=== PATIENT | female | born 1940 | race Caucasian/White ===

== ENCOUNTER 2017-03-04 16:20 | Inpatient (IN) ==
[2017-03-04] MEDS ORDERED: Dextrose Gel 15 GM PO PRN ×2 (18:32)
[2017-03-04] MEDS ORDERED: *HR* Dextrose 50 % in Water (Syg) 50 ML SYRINGE IVP PRN (18:32)
[2017-03-04] MEDS ORDERED: D5% in Water 1,000 ML IVC PRN (18:32)
[2017-03-04] MEDS: Albuterol 2.5 MG/3 ML NEBULIZER IH SCH (20:10)
[2017-03-04] MEDS: *HR* HYDROcodone/Acet 5/325 mg TABLET PO PRN (20:11)
[2017-03-04] MEDS: Insulin LISPRO 300 UNITS/3 ML VIAL SQ SCH (20:53)
[2017-03-04] MEDS: Gabapentin 300 MG CAPSULE PO SCH (20:57)
[2017-03-04] MEDS: *HR* Metformin 500 MG TABLET PO SCH (20:57)
[2017-03-05] MEDS: Albuterol 2.5 MG/3 ML NEBULIZER IH SCH ×7 (01:07→23:52)
[2017-03-05] MEDS: ALPRAZolam 0.5 MG TABLET PO PRN ×2 (02:01→17:31)
[2017-03-05] MEDS: *HR* HYDROcodone/Acet 5/325 mg TABLET PO PRN ×4 (05:19→21:43)
[2017-03-05 05:43] LABS: Basophils # 0.1 K/mcL (0.0-0.2); Basophils % 0.6 %; Eosinophils # 0.5 K/mcL (0.0-0.6); Eosinophils % 5.4 %; Hematocrit 32.7 % (35.3-44.9); Hemoglobin 10.9 g/dL (11.5-15.4); Immature Granulocytes % 0.8 % (0-4); Lymphocytes # 1.4 K/mcL (0.6-4.6); Lymphocytes % 15.2 %; Mean Corpuscular HGB Conc 33.3 g/dL (31.6-35.5); Mean Corpuscular Hemoglobin 32.2 pg (28.0-33.3); Mean Corpuscular Volume 96.5 fL (83.0-100.0); Mean Platelet Volume 10.1 fL (9.4-12.4); Platelet Count 256 K/mcL (140-400); Red Blood Count 3.39 M/mcL (3.82-4.97); Red Cell Distribution Width 14.6 % (11.5-14.5)
[2017-03-05 05:47] LABS: Prothrombin Time 10.6 Seconds (9.4-12.1)
[2017-03-05 05:54] LABS: BUN/Creatinine Ratio 18 (6-26); Blood Urea Nitrogen 12 mg/dL (7-20); Calcium 9.3 mg/dL (8.6-10.8); Carbon Dioxide 25 mEq/L (19-29); Chloride 102 mEq/L (98-109); Glucose 115 mg/dL (70-99); Osmolality,Calculated 281 (280-300); Potassium 5.1 mEq/L (3.5-4.5); Sodium 135 mEq/L (136-145); eGFR For African Americans > 60 (> 60); eGFR For Non-African Americans > 60 (> 60)
[2017-03-05] MEDS: Insulin LISPRO 300 UNITS/3 ML VIAL SQ SCH ×4 (08:53→21:41)
[2017-03-05] MEDS: *HR* Metformin 500 MG TABLET PO SCH ×3 (09:08→21:40)
[2017-03-05] MEDS: Lisinopril 20 MG TABLET PO SCH (09:08)
[2017-03-05] MEDS: Aspirin 81 MG TAB.CHEW PO SCH (09:09)
[2017-03-05] MEDS: Furosemide 20 MG TABLET PO SCH (09:10)
[2017-03-05] MEDS: Gabapentin 300 MG CAPSULE PO SCH ×2 (09:10→21:41)
[2017-03-05] MEDS: Isosorbide MONOnitrate (24 HR) 60 MG TAB.ER.24H PO SCH (09:10)
[2017-03-05] MEDS: Nicotine 21 MG PATCH.TD24 TD SCH (09:15)
--- NOTE | 2017-03-05 11:13 | Internal Med History&Physical ---
Date of Encounter: 03/05/17 Time of Encounter: 11:11 Assessment and Plan (1) Diabetes Current visit: Yes Status: Acute Qualifiers: Diabetes mellitus type: type 2 Diabetes mellitus complication status: with circulatory complication Qualified Code(s): E11.59 - Type 2 diabetes mellitus with other circulatory complications; Z79.4 - middle or intermediate school principal (current) use of insulin ; Z79.4 - middle or intermediate school principal (current) use of insulin; Z79.4 - middle or intermediate school principal (current) use of insulin; Z79.4 - assisted (current) use of insulin (2) HTN (hypertension) Current visit: Yes Status: Acute Following blood pressure Qualifiers: Hypertension type: essential hypertension Qualified Code(s): I10 - Essential (primary) hypertension (3) Pericardial effusion Current visit: No Status: Acute Patient had a median sternotomy. She has precautions and this is been emphasized by everyone. The biopsy and cytology were negative for malignancy Internal Medicine - H&P: HPI Chief complaint: Patient is deconditioned after having a cardiothoracic procedure to relieve Admitted From: Hospital to Hospital Transfer Plans for Post Hospital Care: Home History of present illness: Ms. Meraz is a 76 year old female Who was diagnosed in the past with lung cancer. She had a partial lobectomy and the echocardiogram showed pericardial fluid collection. There were afraid it was malignant and so therefore she underwent a procedure Past Med Surg Social [facility] HX - Past Medical History Medical history: atrial fibrillation, COPD, coronary artery disease, diabetes, hypertension, malignancy, peripheral artery disease, other Psychiatric history: no psych history - Past Surgical History Surgical History: angioplasty/stent, appendectomy, cholecystectomy, hip replacement, other - Social History Smoking Status: Current every day smoker Packs per day: 1 Smokeless Tobacco Status: No Alcohol use: none Drug use: none Internal Medicine - H&P: Meds Albuterol Neb [Proventil Neb] 2.5 mg IH TID PRN 02/25/17 [History] Aspirin 81 mg PO DAILY 02/25/17 [History] Atorvastatin Calcium [Lipitor] 20 mg PO DAILY 02/25/17 [History] Clopidogrel [Plavix] 75 mg PO DAILY 02/25/17 [History] DULoxetine [Cymbalta] 30 mg PO DAILY 02/25/17 [History] Furosemide [Lasix] 20 mg PO DAILY 02/25/17 [History] Gabapentin [Neurontin] 300 mg PO BID 02/25/17 [History] Isosorbide MONOnitrate (24 HR) [Imdur] 60 mg PO DAILY 02/25/17 [History] Omeprazole [PriLOSEC] 20 mg PO DAILY 02/25/17 [History] metFORMIN [Glucophage] 500 mg PO TID 02/25/17 [History] Acetaminophen w/Cod 300-30 mg [Tylenol w/Codeine #3] 1 each PO QID PRN #42 tablet 03/04/17 [Rx] Metoprolol [Lopressor] 12.5 mg PO BID #60 tablet 03/04/17 [Rx] Nicotine Patch [Nicoderm] 21 mg TD DAILY #30 patch.td24 03/04/17 [Rx] 3 Allergy/AdvReac Type Severity Reaction Status Date / Time No Known Allergies Allergy Unverified 08/27/16 11:25 All Systems PM: A 10-system review of systems was performed and is negative for pertinent findings except as documented above in the HPI. - Constitutional Constitutional: weakness - EENT Eyes: as per HPI Ears: as per HPI Nose, mouth and throat: as per HPI - Cardiovascular Cardiovascular ROS IM: dyspnea on exertion - Respiratory Respiratory: as per HPI - Gastrointestinal Gastrointestinal: as per HPI - Genitourinary Genitourinary: as per HPI Menstruation: as per HPI - Musculoskeletal Musculoskeletal ROS IM: muscle weakness (Patient has very strict chest wall precautions. Because she has had a median sternotomy) - Integumentary Integumentary IM: as per HPI - Neurological Neurological ROS: as per HPI, weakness - Psychiatric Psychiatric: as per HPI - Endocrine Endocrine IM: as per HPI - Hematologic/Lymphatic Hematologic/Lymphatic: as per HPI - Allergic/Immunologic Allergic/Immunologic: as per HPI - Constitutional Vitals: Temp Pulse Resp BP Pulse Ox 97.6 F 87 16 123/75 96 03/05/17 07:00 03/05/17 07:00 03/05/17 07:00 03/05/17 07:00 03/05/17 07:00 - Head Head exam: Present: atraumatic, normal inspection, normocephalic - Neck Neck exam general surgery: Present: supple, trachea midline. Absent: lymphadenopathy - Respiratory Respiratory exam: Present: decreased breath sounds, CTAB, prolonged expiratory phase. Absent: accessory muscle use, rales, rhonchi, wheezes - Cardiovascular Cardiovascular exam: Present: RRR, +S1, +S2. Absent: diastolic murmur, gallop, rubs, systolic murmur - GI/Abdominal GI/Abdominal exam: Present: normal bowel sounds, soft, no peritoneal signs. Absent: distended, tenderness Internal Med - H&P Results - Labs CBC & Chem 7: 03/05/17 05:20 03/05/17 05:20 Labs: Short CBC 03/05/17 Range/Units 05:20 WBC 8.9 (4.3-11.1) K/mcL Hgb 10.9 L (11.5-15.4) g/dL Hct 32.7 L (35.3-44.9) % Plt Count 256 (140-400) K/mcL Neutrophils # 6.0 (1.6-8.9) K/mcL BMP 03/05/17 05:20 Sodium 135 L Potassium 5.1 H Chloride 102 Carbon Dioxide 25 BUN 12 Creatinine 0.65 Glucose 115 H Calcium 9.3 At watch potassium but her labs good - VTE Documentation of Mechanical Device: Graduated compression elastic hosiery
[2017-03-06] MEDS: Albuterol 2.5 MG/3 ML NEBULIZER IH SCH ×6 (05:22→23:33)
[2017-03-06] MEDS: Insulin LISPRO 300 UNITS/3 ML VIAL SQ SCH ×4 (08:10→23:27)
[2017-03-06] MEDS: Nicotine 21 MG PATCH.TD24 TD SCH (08:29)
[2017-03-06] MEDS: Gabapentin 300 MG CAPSULE PO SCH ×2 (08:29→20:45)
[2017-03-06] MEDS: Isosorbide MONOnitrate (24 HR) 60 MG TAB.ER.24H PO SCH (08:29)
[2017-03-06] MEDS: Aspirin 81 MG TAB.CHEW PO SCH (08:30)
[2017-03-06] MEDS: *HR* Metformin 500 MG TABLET PO SCH ×3 (08:30→20:45)
[2017-03-06] MEDS: Furosemide 20 MG TABLET PO SCH (08:30)
[2017-03-06] MEDS: Lisinopril 20 MG TABLET PO SCH (08:30)
[2017-03-06] MEDS: *HR* HYDROcodone/Acet 5/325 mg TABLET PO PRN ×2 (11:21→20:45)
--- NOTE | 2017-03-06 12:18 | Physical Med Progress Note ---
Date of Encounter: 03/06/17 Time of Encounter: 12:13 Physical Medicine-PN: Subj Interval history: PMR PCC Note Patient doing well. She has some issues remembering sternal precautions. She is min A for transfers. Min A for upper and lower body dressing. Patient is working on breathing techniques. Patient requires frequent rest breaks. Min to mod A for ambulation. Cues for reminders not to reach back with sit to stand transfers. Ambulates 10 feet times 2 with wheeled walker with step to gait pattern. Plan for discharge to home on 03/15/17. Patient will continue with PT/OT/TR to work on improving endurance and self care. - Constitutional Vitals: Vital Signs Temp Pulse Resp BP Pulse Ox 03/06/17 07:00 97.4 F L 71 15 122/54 92 03/05/17 19:02 97.4 F L 96 20 113/55 98 03/05/17 16:00 97.4 F L 86 16 98/50 99 03/05/17 13:42 98.0 F 77 16 95/55 96 Intake and Output 03/05/17 03/06/17 03/06/17 23:59 07:59 15:59 Intake Total 240 / 240 200 / 200 120 / 120 Balance 240 / 240 200 / 200 120 / 120 Intake: Oral 240 / 240 200 / 200 120 / 120 Other: Meal Dinner Breakfast Percent of Meal Consumed 100% 80% Stool Size Smear # Voids 1 1 Blood Glucose* 162 111 Physical Medicine-PN: Obj Data - Labs CBC & Chem 7: 03/05/17 05:20 03/05/17 05:20 Labs: Laboratory Results - last 24 hr 03/05/17 03/05/17 03/05/17 08:07 12:10 16:47 POC Glucose 116 H 88 114 H 03/05/17 03/06/17 20:16 07:34 POC Glucose 162 H 111 H - ABG Interpretation ABG results: PT/INR, D-dimer PT 10.6 Seconds (9.4-12.1) 03/05/17 05:20 - VTE Documentation of Mechanical Device: Graduated compression elastic hosiery Consult Discharge Plan - Plan Referrals: Rogelio Nevarez CNP [Primary Care Provider] -
[2017-03-06] MEDS: ALPRAZolam 0.5 MG TABLET PO PRN ×2 (15:21→23:33)
[2017-03-07] MEDS: Albuterol 2.5 MG/3 ML NEBULIZER IH SCH ×5 (05:30→19:32)
[2017-03-07] MEDS: *HR* HYDROcodone/Acet 5/325 mg TABLET PO PRN ×3 (05:31→19:31)
[2017-03-07] MEDS: Insulin LISPRO 300 UNITS/3 ML VIAL SQ SCH ×4 (07:56→21:02)
[2017-03-07] MEDS: Gabapentin 300 MG CAPSULE PO SCH ×2 (08:31→21:17)
[2017-03-07] MEDS: Nicotine 21 MG PATCH.TD24 TD SCH (08:31)
[2017-03-07] MEDS: Aspirin 81 MG TAB.CHEW PO SCH (08:31)
[2017-03-07] MEDS: Lisinopril 20 MG TABLET PO SCH (08:31)
[2017-03-07] MEDS: *HR* Metformin 500 MG TABLET PO SCH ×3 (08:31→21:18)
[2017-03-07] MEDS: Furosemide 20 MG TABLET PO SCH (08:31)
[2017-03-07] MEDS: Isosorbide MONOnitrate (24 HR) 60 MG TAB.ER.24H PO SCH (08:31)
[2017-03-07] MEDS: ALPRAZolam 0.5 MG TABLET PO PRN ×2 (11:34→21:18)
--- NOTE | 2017-03-07 13:36 | Internal Med Progress Note ---
Date of Encounter: 03/07/17 Time of Encounter: 13:34 - Assessment and plan (1) Diabetes Current Visit: Yes Status: Acute Assessment and plan: Follow blood sugar. Blood sugars really are. Qualifiers: Diabetes mellitus type: type 2 Diabetes mellitus complication status: with circulatory complication Qualified Code(s): E11.59 - Type 2 diabetes mellitus with other circulatory complications; Z79.4 - local intermodal truck driver (current) use of insulin ; Z79.4 - local intermodal truck driver (current) use of insulin; Z79.4 - local intermodal truck driver (current) use of insulin; Z79.4 - local intermodal truck driver (current) use of insulin (2) HTN (hypertension) Current Visit: Yes Status: Acute Assessment and plan: Blood pressures controlled Qualifiers: Hypertension type: essential hypertension Qualified Code(s): I10 - Essential (primary) hypertension (3) Pericardial effusion Current Visit: No Status: Acute Assessment and plan: This is been resolved for surgery - Time Spent With Patient less than 15 minutes - Subjective Interval history: Patient is aggressive about during her therapy. She is eating well and has no complaints. - Constitutional Vitals: Temp Pulse Resp BP Pulse Ox 98.0 F 99 20 111/50 96 03/06/17 19:09 03/06/17 19:09 03/06/17 19:09 03/06/17 19:09 03/06/17 20:54 - Head Head exam: Present: atraumatic, normal inspection, normocephalic - Neck Neck exam general surgery: Present: supple, trachea midline. Absent: lymphadenopathy - Respiratory Respiratory exam: Present: CTAB. Absent: accessory muscle use, rales, rhonchi, wheezes - Cardiovascular Cardiovascular exam: Present: RRR, +S1, +S2. Absent: diastolic murmur, gallop, rubs, systolic murmur - GI/Abdominal GI/Abdominal exam: Present: normal bowel sounds, soft, no peritoneal signs. Absent: distended, tenderness Internal Medicine: Result - Labs CBC & Chem 7: 03/05/17 05:20 03/05/17 05:20 Labs: Stable - ABG Interpretation ABG results: PT/INR, D-dimer PT 10.6 Seconds (9.4-12.1) 03/05/17 05:20 - VTE Documentation of Mechanical Device: Graduated compression elastic hosiery Consult Discharge Plan - Plan Referrals: Rogelio Nevarez CNP [Primary Care Provider] -
[2017-03-08] MEDS: Albuterol 2.5 MG/3 ML NEBULIZER IH SCH ×6 (00:28→20:30)
[2017-03-08] MEDS: *HR* HYDROcodone/Acet 5/325 mg TABLET PO PRN ×3 (05:27→20:30)
[2017-03-08] MEDS: Insulin LISPRO 300 UNITS/3 ML VIAL SQ SCH ×4 (08:30→20:28)
[2017-03-08] MEDS: *HR* Metformin 500 MG TABLET PO SCH ×3 (09:07→20:28)
[2017-03-08] MEDS: Gabapentin 300 MG CAPSULE PO SCH ×2 (09:07→20:29)
[2017-03-08] MEDS: Isosorbide MONOnitrate (24 HR) 60 MG TAB.ER.24H PO SCH (09:07)
[2017-03-08] MEDS: Aspirin 81 MG TAB.CHEW PO SCH (09:07)
[2017-03-08] MEDS: Furosemide 20 MG TABLET PO SCH (09:07)
[2017-03-08] MEDS: Lisinopril 20 MG TABLET PO SCH (09:07)
[2017-03-08] MEDS: ALPRAZolam 0.5 MG TABLET PO PRN ×2 (09:07→20:29)
[2017-03-08] MEDS: Nicotine 21 MG PATCH.TD24 TD SCH (09:08)
--- NOTE | 2017-03-08 13:37 | Internal Med Progress Note ---
Date of Encounter: 03/08/17 Time of Encounter: 13:35 - Assessment and plan (1) Diabetes Current Visit: Yes Status: Acute Assessment and plan: Patient has had blood sugars followed Qualifiers: Diabetes mellitus type: type 2 Diabetes mellitus complication status: with circulatory complication Qualified Code(s): E11.59 - Type 2 diabetes mellitus with other circulatory complications; Z79.4 - USP (current) use of insulin ; Z79.4 - moth exterminator (current) use of insulin; Z79.4 - moth exterminator (current) use of insulin; Z79.4 - USP (current) use of insulin (2) HTN (hypertension) Current Visit: Yes Status: Acute Assessment and plan: Low pressures well controlled Qualifiers: Hypertension type: essential hypertension Qualified Code(s): I10 - Essential (primary) hypertension (3) Pericardial effusion Current Visit: No Status: Acute Assessment and plan: Reason for surgery was to rule out a malignant effusion. Sedations clean and dry - Time Spent With Patient less than 15 minutes - Subjective Interval history: Patient's doing very well. She is ambulating and cooperating with the therapist and looking good. She does use the walker - Constitutional Vitals: Temp Pulse Resp BP Pulse Ox 97.7 F 87 16 115/56 97 03/08/17 07:46 03/08/17 07:46 03/08/17 08:46 03/08/17 07:46 03/08/17 07:46 - Head Head exam: Present: atraumatic, normal inspection, normocephalic - Neck Neck exam general surgery: Present: supple, trachea midline. Absent: lymphadenopathy - Respiratory Respiratory exam: Present: CTAB. Absent: accessory muscle use, rales, rhonchi, wheezes - Cardiovascular Cardiovascular exam: Present: RRR, +S1, +S2. Absent: diastolic murmur, gallop, rubs, systolic murmur - GI/Abdominal GI/Abdominal exam: Present: normal bowel sounds, soft, no peritoneal signs. Absent: distended, tenderness Internal Medicine: Result - Labs CBC & Chem 7: 03/05/17 05:20 03/05/17 05:20 Labs: Lab looks good - ABG Interpretation ABG results: PT/INR, D-dimer PT 10.6 Seconds (9.4-12.1) 03/05/17 05:20 - VTE Documentation of Mechanical Device: Graduated compression elastic hosiery Consult Discharge Plan - Plan Referrals: Rogelio Nevarez CNP [Primary Care Provider] -
[2017-03-09] MEDS: Albuterol 2.5 MG/3 ML NEBULIZER IH SCH ×6 (01:00→21:30)
[2017-03-09] MEDS: *HR* HYDROcodone/Acet 5/325 mg TABLET PO PRN ×4 (05:33→21:30)
[2017-03-09] MEDS: Insulin LISPRO 300 UNITS/3 ML VIAL SQ SCH ×4 (08:43→21:26)
[2017-03-09] MEDS: Isosorbide MONOnitrate (24 HR) 60 MG TAB.ER.24H PO SCH (08:48)
[2017-03-09] MEDS: ALPRAZolam 0.5 MG TABLET PO PRN ×2 (08:48→19:55)
[2017-03-09] MEDS: Aspirin 81 MG TAB.CHEW PO SCH (08:48)
[2017-03-09] MEDS: Gabapentin 300 MG CAPSULE PO SCH ×2 (08:48→21:31)
[2017-03-09] MEDS: Lisinopril 20 MG TABLET PO SCH (08:50)
[2017-03-09] MEDS: Nicotine 21 MG PATCH.TD24 TD SCH (08:50)
[2017-03-09] MEDS: *HR* Metformin 500 MG TABLET PO SCH ×3 (08:51→21:30)
[2017-03-09] MEDS: Furosemide 20 MG TABLET PO SCH (08:51)
--- NOTE | 2017-03-09 16:46 | Internal Med Progress Note ---
Date of Encounter: 03/09/17 Time of Encounter: 16:40 - Assessment and plan (1) Pericardial effusion Current Visit: Yes Status: Acute Assessment and plan: Stable, currently from a clinical standpoint. (2) Diabetes Current Visit: Yes Status: Acute Assessment and plan: Monitoring Blood sugars. Qualifiers: Diabetes mellitus type: type 2 Diabetes mellitus complication status: with circulatory complication Diabetes mellitus complication detail: with peripheral angiopathy without gangrene Diabetes mellitus care home insulin use : without care home use Qualified Code(s): E11.51 - Type 2 diabetes mellitus with diabetic peripheral angiopathy without gangrene (3) HTN (hypertension) Current Visit: Yes Status: Acute Assessment and plan: Continue current regimen. Qualifiers: Hypertension type: essential hypertension Qualified Code(s): I10 - Essential (primary) hypertension - Subjective Interval history: Doing pretty well and no acue complaints. Breaths well "unitl I need a breathing treatment." Using these every four hours. No other acute issues and ROS is negative but states she's concerned about her swelling in her feet - present since lung surgery (lobectomy) in May. Discussed possible etiology and possible supportive treatments. - Constitutional Vitals: Temp Pulse Resp BP Pulse Ox 97.9 F 55 20 95/47 97 03/09/17 07:00 03/09/17 07:00 03/09/17 07:00 03/09/17 07:00 03/09/17 07:00 - Head Head exam: Present: atraumatic, normocephalic - Eye Eye exam: Present: PERRL, conjuntiva pink, sclera anicteric Pupils: Present: PERRL - Neck Neck exam general surgery: Present: supple, trachea midline. Absent: lymphadenopathy - Respiratory Respiratory exam: Present: CTAB. Absent: accessory muscle use, rales, rhonchi, wheezes Additional comments: Excellent breath sonds, whthout wheeze, even with forced exhalation. - Cardiovascular Cardiovascular exam: Present: RRR. Absent: diastolic murmur, rubs, systolic murmur - GI/Abdominal GI/Abdominal exam: Present: normal bowel sounds, soft, no peritoneal signs. Absent: distended, tenderness Additional comments: Examined upright at bedside. Totally benign but limited exam. - Extremities Exam Extremities exam: Present: warm, radial pulses palpable and symmetrical. Absent : calf tenderness, cyanotic, pedal edema Additional comments: Trace bilateral pedal edema (only). Wearing DAISY hose. - Neurological Exam Neurological exam: Present: CN II-XII intact, oriented X3, no focal deficits. Absent: facial droop, speech deficit Internal Medicine: Result - Labs CBC & Chem 7: 03/05/17 05:20 03/05/17 05:20 - ABG Interpretation ABG results: PT/INR, D-dimer PT 10.6 Seconds (9.4-12.1) 03/05/17 05:20 - VTE Documentation of Mechanical Device: Graduated compression elastic hosiery Consult Discharge Plan - Plan Referrals: Rogelio Nevarez, AIRLINE TICKET AGENT [Primary Care Provider] -
[2017-03-10] MEDS: Albuterol 2.5 MG/3 ML NEBULIZER IH SCH ×6 (00:15→21:04)
[2017-03-10] MEDS: *HR* HYDROcodone/Acet 5/325 mg TABLET PO PRN ×3 (01:51→19:55)
[2017-03-10] MEDS: Insulin LISPRO 300 UNITS/3 ML VIAL SQ SCH ×4 (07:38→20:59)
[2017-03-10] MEDS: Isosorbide MONOnitrate (24 HR) 60 MG TAB.ER.24H PO SCH (07:52)
[2017-03-10] MEDS: Aspirin 81 MG TAB.CHEW PO SCH (07:52)
[2017-03-10] MEDS: Lisinopril 20 MG TABLET PO SCH (07:52)
[2017-03-10] MEDS: Furosemide 20 MG TABLET PO SCH (07:52)
[2017-03-10] MEDS: *HR* Metformin 500 MG TABLET PO SCH ×3 (07:53→20:58)
[2017-03-10] MEDS: ALPRAZolam 0.5 MG TABLET PO PRN ×2 (07:53→21:04)
[2017-03-10] MEDS: Gabapentin 300 MG CAPSULE PO SCH ×2 (07:53→21:04)
[2017-03-10] MEDS: Nicotine 21 MG PATCH.TD24 TD SCH (07:55)
--- NOTE | 2017-03-10 15:01 | Internal Med Progress Note ---
Date of Encounter: 03/10/17 Time of Encounter: 14:10 - Assessment and plan (1) Pericardial effusion Current Visit: Yes Status: Acute Assessment and plan: Stable, currently from a clinical standpoint. (2) Diabetes Current Visit: Yes Status: Acute Assessment and plan: Monitoring Blood sugars. Qualifiers: Diabetes mellitus type: type 2 Diabetes mellitus complication status: with circulatory complication Diabetes mellitus complication detail: with peripheral angiopathy without gangrene Diabetes mellitus fdc insulin use : without intermediate school teacher use Qualified Code(s): E11.51 - Type 2 diabetes mellitus with diabetic peripheral angiopathy without gangrene (3) HTN (hypertension) Current Visit: Yes Status: Acute Assessment and plan: Continue current regimen. Qualifiers: Hypertension type: essential hypertension Qualified Code(s): I10 - Essential (primary) hypertension - Subjective Interval history: No interal hange and denies acute issues per ROS. moving bowels, fine. - Constitutional Vitals: Temp Pulse Resp BP Pulse Ox 98.2 F 72 18 112/60 95 03/10/17 08:00 03/10/17 08:00 03/10/17 08:00 03/10/17 08:00 03/10/17 08:00 - Head Head exam: Present: atraumatic, normocephalic - Eye Eye exam: Present: PERRL, conjuntiva pink, sclera anicteric Pupils: Present: PERRL - Respiratory Respiratory exam: Present: CTAB. Absent: accessory muscle use, rales, rhonchi, wheezes Additional comments: Diffuse sonorous rhonchi, rather pronounced but ggood airflow no rales or wheezes. - Cardiovascular Cardiovascular exam: Present: RRR. Absent: diastolic murmur, systolic murmur - GI/Abdominal GI/Abdominal exam: Present: normal bowel sounds, soft, no peritoneal signs. Absent: distended, tenderness - Extremities Exam Extremities exam: Present: warm, radial pulses palpable and symmetrical. Absent : calf tenderness, cyanotic, pedal edema Internal Medicine: Result - Labs CBC & Chem 7: 03/05/17 05:20 03/05/17 05:20 - ABG Interpretation ABG results: PT/INR, D-dimer PT 10.6 Seconds (9.4-12.1) 03/05/17 05:20 - VTE Documentation of Mechanical Device: Graduated compression elastic hosiery Consult Discharge Plan - Plan Referrals: Rogelio Nevarez, MATT [Primary Care Provider] -
[2017-03-11] MEDS: Albuterol 2.5 MG/3 ML NEBULIZER IH SCH ×6 (00:10→20:20)
[2017-03-11 06:19] LABS: Basophils # 0.1 K/mcL (0.0-0.2); Basophils % 0.7 %; Eosinophils # 0.3 K/mcL (0.0-0.6); Hematocrit 32.7 % (35.3-44.9); Hemoglobin 10.8 g/dL (11.5-15.4); Immature Granulocytes % 0.7 % (0-4); Lymphocytes # 1.7 K/mcL (0.6-4.6); Lymphocytes % 20.8 %; Mean Corpuscular Volume 96.7 fL (83.0-100.0); Monocytes # 0.7 K/mcL (0.0-1.3); Monocytes % 8.3 %; Neutrophils # 5.5 K/mcL (1.6-8.9); Platelet Count 297 K/mcL (140-400); Red Blood Count 3.38 M/mcL (3.82-4.97); Red Cell Distribution Width 14.3 % (11.5-14.5); Segmented Neutrophils % 65.5 %
[2017-03-11 06:33] LABS: BUN/Creatinine Ratio 24 (6-26); Blood Urea Nitrogen 18 mg/dL (7-20); Calcium 9.6 mg/dL (8.6-10.8); Carbon Dioxide 27 mEq/L (19-29); Chloride 101 mEq/L (98-109); Glucose 111 mg/dL (70-99); Osmolality,Calculated 291 (280-300); Potassium 4.8 mEq/L (3.5-4.5); Sodium 139 mEq/L (136-145); eGFR For African Americans > 60 (> 60); eGFR For Non-African Americans > 60 (> 60)
[2017-03-11] MEDS: Nicotine 21 MG PATCH.TD24 TD SCH (08:11)
[2017-03-11] MEDS: Furosemide 20 MG TABLET PO SCH (08:12)
[2017-03-11] MEDS: Aspirin 81 MG TAB.CHEW PO SCH (08:12)
[2017-03-11] MEDS: Isosorbide MONOnitrate (24 HR) 60 MG TAB.ER.24H PO SCH (08:12)
[2017-03-11] MEDS: *HR* Metformin 500 MG TABLET PO SCH ×3 (08:12→20:18)
[2017-03-11] MEDS: Gabapentin 300 MG CAPSULE PO SCH ×2 (08:12→20:19)
[2017-03-11] MEDS: Lisinopril 20 MG TABLET PO SCH (08:12)
[2017-03-11] MEDS: Insulin LISPRO 300 UNITS/3 ML VIAL SQ SCH ×4 (08:13→20:19)
--- NOTE | 2017-03-11 13:36 | Internal Med Progress Note ---
Date of Encounter: 03/11/17 Time of Encounter: 13:34 - Assessment and plan (1) Diabetes Current Visit: Yes Status: Acute Assessment and plan: Following blood sugar all below 200 most below 125.. Qualifiers: Diabetes mellitus type: type 2 Diabetes mellitus complication status: with circulatory complication Diabetes mellitus complication detail: with peripheral angiopathy without gangrene Diabetes mellitus residential insulin use : without terminal press operator use Qualified Code(s): E11.51 - Type 2 diabetes mellitus with diabetic peripheral angiopathy without gangrene (2) HTN (hypertension) Current Visit: Yes Status: Acute Assessment and plan: Blood pressures well controlled Qualifiers: Hypertension type: essential hypertension Qualified Code(s): I10 - Essential (primary) hypertension (3) Pericardial effusion Current Visit: Yes Status: Acute - Time Spent With Patient less than 15 minutes - Subjective Interval history: She still needs contact guard on occasion standby. She continues to have her sternal precautions reinforced. She is very deconditioned as frequent rests - Constitutional Vitals: Temp Pulse Resp BP Pulse Ox 97.6 F 57 16 118/68 93 03/11/17 08:00 03/11/17 08:00 03/11/17 08:00 03/11/17 08:00 03/11/17 08:00 - Head Head exam: Present: atraumatic, normal inspection, normocephalic - Neck Neck exam general surgery: Present: supple, trachea midline. Absent: lymphadenopathy - Respiratory Respiratory exam: Present: CTAB. Absent: accessory muscle use, rales, rhonchi, wheezes - Cardiovascular Cardiovascular exam: Present: RRR, +S1, +S2. Absent: diastolic murmur, gallop, rubs, systolic murmur - GI/Abdominal GI/Abdominal exam: Present: normal bowel sounds, soft, no peritoneal signs. Absent: distended, tenderness Internal Medicine: Result - Labs CBC & Chem 7: 03/11/17 05:50 03/11/17 05:50 Labs: Short CBC 03/11/17 Range/Units 05:50 WBC 8.4 (4.3-11.1) K/mcL Hgb 10.8 L (11.5-15.4) g/dL Hct 32.7 L (35.3-44.9) % Plt Count 297 (140-400) K/mcL Neutrophils # 5.5 (1.6-8.9) K/mcL BMP 03/11/17 05:50 Sodium 139 Potassium 4.8 H Chloride 101 Carbon Dioxide 27 BUN 18 Creatinine 0.74 Glucose 111 H Calcium 9.6 Lab is stable - ABG Interpretation ABG results: PT/INR, D-dimer PT 10.6 Seconds (9.4-12.1) 03/05/17 05:20 - VTE Documentation of Mechanical Device: Graduated compression elastic hosiery Consult Discharge Plan - Plan Referrals: Rogelio Nevarez GRINDER MILL OPERATOR [Primary Care Provider] -
[2017-03-11] MEDS: *HR* HYDROcodone/Acet 5/325 mg TABLET PO PRN ×2 (13:39→20:20)
[2017-03-11] MEDS: ALPRAZolam 0.5 MG TABLET PO PRN (20:20)
[2017-03-12] MEDS: Albuterol 2.5 MG/3 ML NEBULIZER IH SCH ×6 (01:00→21:22)
[2017-03-12] MEDS: Insulin LISPRO 300 UNITS/3 ML VIAL SQ SCH ×4 (08:31→20:56)
[2017-03-12] MEDS: ALPRAZolam 0.5 MG TABLET PO PRN (08:35)
[2017-03-12] MEDS: Nicotine 21 MG PATCH.TD24 TD SCH (08:35)
[2017-03-12] MEDS: Aspirin 81 MG TAB.CHEW PO SCH (08:36)
[2017-03-12] MEDS: *HR* Metformin 500 MG TABLET PO SCH ×3 (08:36→21:23)
[2017-03-12] MEDS: Isosorbide MONOnitrate (24 HR) 60 MG TAB.ER.24H PO SCH (08:36)
[2017-03-12] MEDS: Lisinopril 20 MG TABLET PO SCH (08:36)
[2017-03-12] MEDS: Gabapentin 300 MG CAPSULE PO SCH ×2 (08:36→21:23)
[2017-03-12] MEDS: Furosemide 20 MG TABLET PO SCH (08:36)
[2017-03-12] MEDS: *HR* HYDROcodone/Acet 5/325 mg TABLET PO PRN ×2 (08:36→21:23)
--- NOTE | 2017-03-12 11:51 | Internal Med Progress Note ---
Date of Encounter: 03/12/17 Time of Encounter: 11:49 ( ) - Assessment and plan (1) Diabetes Current Visit: Yes Status: Acute Assessment and plan: Blood sugars look real good. Qualifiers: Diabetes mellitus type: type 2 Diabetes mellitus complication status: with circulatory complication Diabetes mellitus complication detail: with peripheral angiopathy without gangrene Diabetes mellitus dedicated intermodal truck driver insulin use : without long-term use Qualified Code(s): E11.51 - Type 2 diabetes mellitus with diabetic peripheral angiopathy without gangrene (2) HTN (hypertension) Current Visit: Yes Status: Acute Assessment and plan: Loud pressures well controlled Qualifiers: Hypertension type: essential hypertension Qualified Code(s): I10 - Essential (primary) hypertension (3) Pericardial effusion Current Visit: Yes Status: Acute Assessment and plan: This precipitated to surgery. To rule out a malignant effusion which was ruled out - Time Spent With Patient less than 15 minutes - Subjective Interval history: She still needs contact guard on occasion standby. She continues to have her sternal precautions reinforced. She is very deconditioned as frequent rests. - Constitutional Vitals: Temp Pulse Resp BP Pulse Ox 97.8 F 69 18 108/66 97 03/12/17 06:00 03/12/17 08:55 03/12/17 08:55 03/12/17 08:55 03/12/17 08:55 - Head Head exam: Present: atraumatic, normal inspection, normocephalic - Neck Neck exam general surgery: Present: supple, trachea midline. Absent: lymphadenopathy - Respiratory Respiratory exam: Present: CTAB. Absent: accessory muscle use, rales, rhonchi, wheezes - Cardiovascular Cardiovascular exam: Present: RRR, +S1, +S2. Absent: diastolic murmur, gallop, rubs, systolic murmur Internal Medicine: Result - Labs CBC & Chem 7: 03/11/17 05:50 03/11/17 05:50 Labs: Lab work stable - ABG Interpretation ABG results: PT/INR, D-dimer PT 10.6 Seconds (9.4-12.1) 03/05/17 05:20 - VTE Documentation of Mechanical Device: Graduated compression elastic hosiery Consult Discharge Plan - Plan Referrals: Rogelio Nevarez MANAGER FINANCIAL PLANNING [Primary Care Provider] -
[2017-03-13] MEDS: Albuterol 2.5 MG/3 ML NEBULIZER IH SCH ×6 (01:30→21:33)
[2017-03-13] MEDS: ALPRAZolam 0.5 MG TABLET PO PRN ×2 (01:30→21:34)
[2017-03-13] MEDS: Furosemide 20 MG TABLET PO SCH (08:22)
[2017-03-13] MEDS: Nicotine 21 MG PATCH.TD24 TD SCH (08:22)
[2017-03-13] MEDS: Isosorbide MONOnitrate (24 HR) 60 MG TAB.ER.24H PO SCH (08:23)
[2017-03-13] MEDS: Gabapentin 300 MG CAPSULE PO SCH ×2 (08:23→21:34)
[2017-03-13] MEDS: Lisinopril 20 MG TABLET PO SCH (08:23)
[2017-03-13] MEDS: *HR* Metformin 500 MG TABLET PO SCH ×3 (08:23→21:33)
[2017-03-13] MEDS: Aspirin 81 MG TAB.CHEW PO SCH (08:24)
[2017-03-13] MEDS: Insulin LISPRO 300 UNITS/3 ML VIAL SQ SCH ×4 (10:07→23:51)
--- NOTE | 2017-03-13 13:17 | Physical Med Progress Note ---
Date of Encounter: 03/13/17 Time of Encounter: 13:10 Physical Medicine-PN: Subj Interval history: PMR PCC Note Patient is unable to recall her sternal precautions. Her endurance has improved. She has difficulty with sit to stand. Patient is ambulating 150 feet with SBA. SBA to CGA for all ADLs. Patient stood for 18 minutes. Plan for discharge to home on 03/15/17 with home health. - Constitutional Vitals: Vital Signs Temp Pulse Resp BP Pulse Ox 03/13/17 08:00 98.6 F 81 16 114/66 94 03/12/17 20:00 98.1 F 91 18 122/56 95 Intake and Output 03/12/17 03/13/17 03/13/17 23:59 07:59 15:59 Other: Meal Breakfast Percent of Meal Consumed 100% # Voids 1 1 Blood Glucose* 216 108 Physical Medicine-PN: Obj Data - Labs CBC & Chem 7: 03/11/17 05:50 03/11/17 05:50 Labs: Laboratory Results - last 24 hr 03/12/17 03/12/17 03/12/17 07:18 11:13 16:11 POC Glucose 103 H 150 H 89 03/12/17 03/13/17 20:34 07:20 POC Glucose 216 H 108 H - ABG Interpretation ABG results: PT/INR, D-dimer PT 10.6 Seconds (9.4-12.1) 03/05/17 05:20 - VTE Documentation of Mechanical Device: Graduated compression elastic hosiery Consult Discharge Plan - Plan Referrals: Rogelio Nevarez PALLET ASSEMBLER [Primary Care Provider] -
[2017-03-13] MEDS: *HR* HYDROcodone/Acet 5/325 mg TABLET PO PRN (14:48)
--- NOTE | 2017-03-13 16:25 | Electrocardiograph Report ---
[place] [id number] Test Date: 2017-03-12 Pat Name: Annette Meraz Department: 2001 Room: 109 Gender: F Clothing Designer: Queenie : 1940 Requested By: Luis Rosen Order Number: [id number] Reading MD: Cheko Lyons MD Measurements Intervals [place] Rate: 68 P: -72 CO: 222 QRS: 58 QRSD: 70 T: 33 QT: 318 QTc: 336 Interpretive Statements SINUS RHYTHM WITH FIRST DEGREE AV BLOCK LOW QRS VOLTAGE Electronically Signed On 03-13-2017 16:23:57 EST by Cheko Lyons MD
[2017-03-14] MEDS: Albuterol 2.5 MG/3 ML NEBULIZER IH SCH ×6 (00:34→19:57)
[2017-03-14] MEDS: Lisinopril 20 MG TABLET PO SCH (07:43)
[2017-03-14] MEDS: Nicotine 21 MG PATCH.TD24 TD SCH (07:43)
[2017-03-14] MEDS: Furosemide 20 MG TABLET PO SCH (07:45)
[2017-03-14] MEDS: Gabapentin 300 MG CAPSULE PO SCH ×2 (07:46→20:22)
[2017-03-14] MEDS: Aspirin 81 MG TAB.CHEW PO SCH (07:46)
[2017-03-14] MEDS: *HR* Metformin 500 MG TABLET PO SCH ×3 (07:46→20:21)
[2017-03-14] MEDS: Isosorbide MONOnitrate (24 HR) 60 MG TAB.ER.24H PO SCH (07:47)
[2017-03-14] MEDS: Insulin LISPRO 300 UNITS/3 ML VIAL SQ SCH ×4 (09:00→20:25)
[2017-03-14] MEDS: *HR* HYDROcodone/Acet 5/325 mg TABLET PO PRN ×2 (09:45→16:45)
--- NOTE | 2017-03-14 11:44 | Internal Med Progress Note ---
Date of Encounter: 03/14/17 Time of Encounter: 11:43 - Assessment and plan (1) Diabetes Current Visit: Yes Status: Acute Assessment and plan: Following blood sugars. Qualifiers: Diabetes mellitus type: type 2 Diabetes mellitus complication status: with circulatory complication Diabetes mellitus complication detail: with peripheral angiopathy without gangrene Diabetes mellitus adjunct faculty for medical terminology insulin use : without alf use Qualified Code(s): E11.51 - Type 2 diabetes mellitus with diabetic peripheral angiopathy without gangrene (2) HTN (hypertension) Current Visit: Yes Status: Acute Qualifiers: Hypertension type: essential hypertension Qualified Code(s): I10 - Essential (primary) hypertension (3) Pericardial effusion Current Visit: Yes Status: Acute - Subjective Interval history: She will be discharged tomorrow. Her biggest concern is that she lives alone will not have 724 hour care as we have recommended. She has memory issues and sternal precautions etc. - Constitutional Vitals: Temp Pulse Resp BP Pulse Ox 96.8 F L 62 18 115/50 93 03/14/17 08:00 03/14/17 08:00 03/14/17 08:00 03/14/17 08:00 03/14/17 08:00 - Head Head exam: Present: atraumatic, normal inspection, normocephalic - Neck Neck exam general surgery: Present: supple, trachea midline. Absent: lymphadenopathy - Respiratory Respiratory exam: Present: CTAB. Absent: accessory muscle use, rales, rhonchi, wheezes - Cardiovascular Cardiovascular exam: Present: RRR, +S1, +S2. Absent: diastolic murmur, gallop, rubs, systolic murmur Internal Medicine: Result - Labs CBC & Chem 7: 03/11/17 05:50 03/11/17 05:50 Labs: Labs look stable on check in the morning. - ABG Interpretation ABG results: PT/INR, D-dimer PT 10.6 Seconds (9.4-12.1) 03/05/17 05:20 - VTE Documentation of Mechanical Device: Graduated compression elastic hosiery Consult Discharge Plan - Plan Referrals: Tati Martinez CNP [Advanced Practice Nurse] - 03/18/17 10:30 am Melani Ríos MD [Partnered Physician] - 03/21/17 1:45 pm Rogelio Nevarez CNP [Primary Care Provider] -
[2017-03-14] MEDS: ALPRAZolam 0.5 MG TABLET PO PRN (19:56)
[2017-03-15] MEDS: Albuterol 2.5 MG/3 ML NEBULIZER IH SCH ×4 (00:19→11:47)
[2017-03-15 07:11] VITALS: BP 103/68
[2017-03-15] MEDS: Nicotine 21 MG PATCH.TD24 TD SCH (08:13)
[2017-03-15] MEDS: *HR* Metformin 500 MG TABLET PO SCH (08:16)
[2017-03-15] MEDS: Gabapentin 300 MG CAPSULE PO SCH (08:16)
[2017-03-15] MEDS: Furosemide 20 MG TABLET PO SCH (08:16)
[2017-03-15] MEDS: ALPRAZolam 0.5 MG TABLET PO PRN (08:16)
[2017-03-15] MEDS: Lisinopril 20 MG TABLET PO SCH (08:16)
[2017-03-15] MEDS: Isosorbide MONOnitrate (24 HR) 60 MG TAB.ER.24H PO SCH (08:16)
[2017-03-15] MEDS: Insulin LISPRO 300 UNITS/3 ML VIAL SQ SCH ×2 (08:17→12:52)
[2017-03-15] MEDS: Aspirin 81 MG TAB.CHEW PO SCH (08:17)
[2017-03-15] MEDS: *HR* HYDROcodone/Acet 5/325 mg TABLET PO PRN (13:19)
--- NOTE | 2017-03-15 13:42 | Physician Discharge Referral ---
Home Health/Hosp Referral Info Transfer to: Home Health Provider in Charge Post Discharge: PCP - Diagnosis (1) Diabetes Priority: Secondary Status: Acute (2) HTN (hypertension) Priority: Secondary Status: Acute (3) Pericardial effusion Priority: Primary Status: Acute - Respiratory Orders Smoking Cessation: Smoking cessation has been advised. For more information, call the [place] Tobacco Quit Line at 1-167-QRIZ-NOW. - Transfer Medications Home Medications: Albuterol Neb [Proventil Neb] 2.5 mg IH TID PRN 02/25/17 [History] Aspirin 81 mg PO DAILY 02/25/17 [History] Atorvastatin Calcium [Lipitor] 20 mg PO DAILY 02/25/17 [History] Clopidogrel [Plavix] 75 mg PO DAILY 02/25/17 [History] DULoxetine [Cymbalta] 30 mg PO DAILY 02/25/17 [History] Furosemide [Lasix] 20 mg PO DAILY 02/25/17 [History] Gabapentin [Neurontin] 300 mg PO BID 02/25/17 [History] Isosorbide MONOnitrate (24 HR) [Imdur] 60 mg PO DAILY 02/25/17 [History] Omeprazole [PriLOSEC] 20 mg PO DAILY 02/25/17 [History] metFORMIN [Glucophage] 500 mg PO TID 02/25/17 [History] Acetaminophen w/Cod 300-30 mg [Tylenol w/Codeine #3] 1 each PO QID PRN #42 tablet 03/04/17 [Rx] Metoprolol [Lopressor] 12.5 mg PO BID #60 tablet 03/04/17 [Rx] Nicotine Patch [Nicoderm] 21 mg TD DAILY #30 patch.td24 03/04/17 [Rx] Allergies/Adverse Reactions: 3 Allergy/AdvReac Type Severity Reaction Status Date / Time No Known Allergies Allergy Unverified 08/27/16 11:25 Certification: Further, I certify that my clinical findings support that this patient is homebound (i.e. absences from home require considerable and taxing effort and are for medical reasons or protestant services or infrequently or short duration when for other reasons) because: Attestation: My signature below is to certify that this patient is under my care and that I, or nurse practitioner, or a physician's traffic assistant working with me, has a face-to -face encounter with this patient.
--- NOTE | 2017-03-15 14:14 | Discharge Summary ---
Date of Encounter: 03/15/17 Time of Encounter: 14:13 - Discharge Diagnosis (1) Diabetes Priority: Secondary Status: Acute Qualifiers: Diabetes mellitus type: type 2 Diabetes mellitus complication status: with circulatory complication Diabetes mellitus complication detail: with peripheral angiopathy without gangrene Diabetes mellitus long-term insulin use : without long term care administrator use Qualified Code(s): E11.51 - Type 2 diabetes mellitus with diabetic peripheral angiopathy without gangrene (2) HTN (hypertension) Priority: Secondary Status: Acute Qualifiers: Hypertension type: essential hypertension Qualified Code(s): I10 - Essential (primary) hypertension (3) Pericardial effusion Priority: Primary Status: Acute Comments: This necessitated Matt open heart surgery to make sure this was not a malignant effusion - Discharge Medications Home Medications: Albuterol Neb [Proventil Neb] 2.5 mg IH TID PRN 02/25/17 [History] Aspirin 81 mg PO DAILY 02/25/17 [History] Atorvastatin Calcium [Lipitor] 20 mg PO DAILY 02/25/17 [History] Clopidogrel [Plavix] 75 mg PO DAILY 02/25/17 [History] DULoxetine [Cymbalta] 30 mg PO DAILY 02/25/17 [History] Furosemide [Lasix] 20 mg PO DAILY 02/25/17 [History] Gabapentin [Neurontin] 300 mg PO BID 02/25/17 [History] Isosorbide MONOnitrate (24 HR) [Imdur] 60 mg PO DAILY 02/25/17 [History] Omeprazole [PriLOSEC] 20 mg PO DAILY 02/25/17 [History] metFORMIN [Glucophage] 500 mg PO TID 02/25/17 [History] Acetaminophen w/Cod 300-30 mg [Tylenol w/Codeine #3] 1 each PO QID PRN #42 tablet 03/04/17 [Rx] Metoprolol [Lopressor] 12.5 mg PO BID #60 tablet 03/04/17 [Rx] Nicotine Patch [Nicoderm] 21 mg TD DAILY #30 patch.td24 03/04/17 [Rx] Allergies/Adverse Reactions: 3 Allergy/AdvReac Type Severity Reaction Status Date / Time No Known Allergies Allergy Unverified 08/27/16 11:25 Date of admission: 03/04/17 16:57 Primary care physician: Rogelio Nevarez CNP Consults: 03/04/17 17:35 Consult to Occupational Therapy [CONS] Routine Comment: Evaluate, develop and implement POC Reason for Consult: Deconditioning Consult to Physical Therapy [CONS] Routine Comment: Evaluate, develop and implement POC Reason for Consult: Deconditioning Consult to Recreational Therapy [CONS] Routine Comment: Evaluate, develop and implement POC Consult to Salesforce Administrator [CONS] Routine Reason for SW Consult: Deconditioning Discharging clinician: Luis Rosen Anticipated date of discharge: 03/15/17 - Discharge Instructions Instructions: How to Stop Smoking (DC), How to Check Your Blood Sugar (DC), Sternal Precautions (GEN) Follow Up With: Tati Martinez CNP [Advanced Practice Nurse] - 03/18/17 10:30 am Melani Ríos MD [Partnered Physician] - 03/21/17 1:45 pm Rogelio Nevarez CNP [Primary Care Provider] - 03/22/17 3:45 pm (follow up appointment with [facility]) Hospital course: Ms. Meraz is a 76 year old female - Time Spent with Patient Total time spent providing and/or coordinating discharge services: - Constitutional Vitals: Temp Pulse Resp BP Pulse Ox 97.6 F 72 20 103/68 99 03/15/17 07:00 03/15/17 07:00 03/15/17 11:48 03/15/17 07:00 03/15/17 07:00 - VTE Documentation of Mechanical Device: Graduated compression elastic hosiery
== END 2017-03-15 14:40 | disposition home health service (06) | DRG 950 ==
LOC: INPGRE 16:57
PROVIDERS: ADMIT Internal Medicine; ATTEND Internal Medicine